=== PATIENT | male | born 1985 | race Hispanic/Latino ===

== ENCOUNTER 2021-01-25 15:14 | Emergency (ER) | payer SELFPAY ==
[2021-01-25] MEDS ORDERED: NA CHLORIDE 0.9% 2,000 ML ONE (15:25)
[2021-01-25] MEDS ORDERED: ONDANSETRON 4 MG/2 ML VIAL ONE (15:25)
[2021-01-25] MEDS ORDERED: FENTANYL CITR 100 MCG/2 ML ONE (15:25)
[2021-01-25 15:44] LABS: Absolute Lymphocytes (CBC) 2.6 K/uL (0.7-4.9); Basophils % 0.4 % (0-1.3); Hematocrit 42.6 % (39.6-49.0); Lymphocytes % 28.5 % (15.3-44.8); MPV 9.2 fL (7.6-11.3)
[2021-01-25 15:46] LABS: Protime INR 0.97
[2021-01-25 15:55] LABS: Potassium 3.6 mmol/L (3.5-5.1)
--- NOTE | 2021-01-25 16:02 | RAD REPORT ---
EXAM DESCRIPTION: CT - Head C Spine Cap W Kevin - 01/25/2021 3:47 pm CLINICAL HISTORY: PAIN COMPARISON: No comparisons TECHNIQUE: Axial [address] head images were obtained. Axial [address] cervical spine images were obtaine d with sagittal and coronal reconstruction images reviewed. During dynamic enhancement of 100mL non-i onic contrast, axial 5 mm images of the chest, abdomen and pelvis were obtained. Biphasic technique p erformed of the abdomen and pelvis. All CT scans are performed using dose optimization technique as appropriate and may include automated exposure control or mA/KV adjustment according to patient size. FINDINGS: No intracranial hemorrhage, mass or edema. No midline shift or abnormal fluid collection. Mastoid air cells are clear. No skull fracture is seen. Facial bones, orbits and sinuses are separ ately detailed. CT cervical spine imaging shows normal height. Normal alignment of the vertebrae. No disc space narro wing. No paraspinal mass or hematoma seen. Central canal detail is inherently limited. Concerns for t raumatic disc herniation or traumatic cord injury can be further addressed with MR imaging. CT chest shows no pneumothorax, pulmonary contusion or pleural fluid collection. No mediastinal hemat mara and the aorta and pulmonary arteries are unremarkable. No chest will mass or abnormal axillary fi nding. No displaced rib fracture or other significant bony finding. CT abdomen and pelvis show no injury to solid abdominal viscera. Gallbladder and biliary tree are unr emarkable. No bowel injury or significant finding. No free air, free fluid or abnormal stranding. No urinary bladder abnormality. No acute fracture in the abdomen or pelvis. Contusion or edema changes are seen lateral to the hip lorena int. No significant vascular finding. IMPRESSION: No hemorrhage, edema or acute intracranial finding. Facial bones, orbits and sinuses are separately detailed. No significant CT Cervical Spine finding. No significant CT Chest finding. No significant CT Abdomen and Pelvis finding.
--- NOTE | 2021-01-25 16:07 | RAD REPORT ---
EXAM DESCRIPTION: CT - Facial Bones W/ Mpr - 01/25/2021 3:47 pm CLINICAL HISTORY: Fall from ladder, blunt force trauma left side of the face COMPARISON: None. TECHNIQUE: Axial 2 millimeter thick images of the facial bones were obtained with sagittal and coron al reconstruction imaging. All CT scans are performed using dose optimization technique as appropriate and may include automated exposure control or mA/KV adjustment according to patient size. FINDINGS: Distal forearm fractures present separately detailed. In Mandible is intact. Condyles of the mandible are normally positioned. Mastoid air cells are clear. No skullbase fracture identified. Moderately large hematoma overlies left side frontal bone and left pe riorbital region. Frontal sinuses normally aerated with intact sinus smith. Comminuted nasal bone fractures present. There is fracture of the nasal septum at the junction with t he nasal bone. Multiple small fractures are present along the medial left orbital wall. There is intr aorbital, extraconal air within the orbit. Optic nerve and extraocular muscles appear intact. No glob e injury seen. Left orbital floor is intact. Zygomatic arch is intact. Trace fluid levels are present in each maxillary sinus with areas of retention cyst or polyp formatio n in each sinus. IMPRESSION: Comminuted nasal bone fracture with multiple small fracture fragments along the medial l eft orbital wall. Intraorbital, extraconal air is present on the left. Injury to the optic nerve or extraocular muscles not identified. Right deviation of the nasal septum with the anterior margin of the septum fractured.
--- NOTE | 2021-01-25 16:08 | RAD REPORT ---
EXAM DESCRIPTION: RAD - Femur Left - 01/25/2021 4:01 pm CLINICAL HISTORY: PAIN, fall from ladder, leg pain COMPARISON: None. FINDINGS: No fracture is identified. There is no dislocation or periosteal reaction noted. No acute or suspicious bony finding. No air or foreign body in the soft tissues. IMPRESSION: Negative left femur examination.
--- NOTE | 2021-01-25 16:10 | RAD REPORT ---
EXAM DESCRIPTION: RAD - Wrist Left 3 View - 01/25/2021 4:01 pm CLINICAL HISTORY: Pain;Deformity, fall from ladder COMPARISON: No comparisons FINDINGS: Ulna styloid is fractured with minimal displacement. Comminuted fracture of the distal radius is present. There is a main transverse fracture line through the distal radius with additional coronal fracture line along the dorsum. Fracture traverses the art icular surface. There is dorsal displacement of fracture fragments. Carpal bones maintain normal positioning to the distal radial fracture fragments. Carpal bone fractur e is not confirmed from these views. No foreign body or other soft tissue abnormality. IMPRESSION: Comminuted fracture of the distal radius with dorsal fracture fragment displacement.
[2021-01-25] MEDS ORDERED: MORPHINE 4 MG/ML SYR ONE ×2 (16:20→17:32)
[2021-01-25] MEDS ORDERED: TETANUS & DIPHTHERIA TOX,ADULT 0.5 ML VIAL ONE (16:27)
[2021-01-25] MEDS ORDERED: CEFAZOLIN SODIUM 1 GM/VIAL ONE (17:31)
--- NOTE | 2021-01-25 18:17 | ER ---
Nurse's Notes [facility] Name: Obinna Colin Age: 35 yrs Sex: Male : 1985 Arrival Date: 01/25/2021 Time: 15:19 Bed 3 Private MD: Diagnosis: Fall on and from scaffolding, initial encounter;Fracture of nasal bones, initial encounter for closed fracture;Colles' fracture of left radius, initial encounter for closed fracture;Unspecified injury of left eye and orbit, initial encounter;Concussion with loss of consciousness of unspecified duration Presentation: 01/25 15:10 Mechanism of Injury: Fall off 12 foot scaffold approximately 12 feet. Trauma event jl7 details: Injury occurred in the [facility], Injury occurred: Job site Injury occurred: January 25, 2021 Injury occurred at: 14:30. 15:10 Chief complaint: EMS states: pt was on a scaffolding working on a house. approximately tw2 12' high. he fell and landed on his face and LEFT wrist. + LOC. did have loss of bladder. when we arrived he had snoring respirations. initial bp was 148/90. in arrival to the EMS bay here it was 104/66. his HR is all over the place. c/o neck, back, and LEFT wrist pain with obvious deformity to the LEFT wrist. Coronavirus screen: At this time, the client does not indicate any symptoms associated with coronavirus-19. Ebola Screen: Patient denies travel to an Ebola-affected area in the 21 days before illness onset. Initial Sepsis Screen: Does the patient meet any 2 criteria? No. Patient's initial sepsis screen is negative. Does the patient have a suspected source of infection? No. Patient's initial sepsis screen is negative. Risk Assessment: Do you want to hurt yourself or someone else? Patient reports no desire to harm self or others. Onset of symptoms was January 25, 2021. 15:10 Method Of Arrival: EMS: [facility] tw2 15:10 Acuity: EDWIN 2 tw2 15:10 Care prior to arrival: Cervical collar in place. Placed on backboard. IV initiated. 18 tw2 GA, in the right forearm. 15:10 Care prior to arrival: Splint applied. jl7 Triage Assessment: 15:10 General: Appears in no apparent distress. Behavior is calm, cooperative, appropriate tw2 for age. Pain: Complains of pain in left wrist, face, left leg. Trauma Activation: Alert Physician: ED Physician; Name: ; Notified At: ; Arrived At: Physician: General Surgeon; Name: ; Notified At: ; Arrived At: Physician: Radiology; Name: ; Notified At: ; Arrived At: Physician: Respiratory; Name: ; Notified At: ; Arrived At: Physician: Lab; Name: ; Notified At: ; Arrived At: Historical: - Allergies: 15:40 No Known Allergies; tw2 - Home Meds: 15:40 None [Active]; tw2 - PMHx: 15:40 None; tw2 - PSHx: 15:40 None; tw2 - Immunization history:: Adult Immunizations. - Social history:: Smoking status: . - Immunization history: Last tetanus immunization: < 10 years ago. Screenin:42 Abuse screen: Denies threats or abuse. Nutritional screening: No deficits noted. tw2 Tuberculosis screening: No symptoms or risk factors identified. Fall Risk None identified. Primary Survey: 15:10 NO uncontrolled hemorrhage observed. A: Airway: patent. Breathing/Chest: Respiratory jl7 pattern: regular, Respiratory effort: spontaneous, unlabored, Chest inspection: symmetrical rise and fall of the chest. Circulation: Cardiac rhythm: Heart tones present. Pulses: palpable right radial artery, right posterior tibial artery, left radial artery and left posterior tibial artery. Skin color: pink, Skin temperature: warm. Disability Alert. Exposure/Environment: All clothing and personal items were removed. Forensic evidence collection is not deemed to be indicated at this time. Items placed in patient belonging bag. There is no evidence of uncontrolled external bleeding. Obvious injury(ies) are noted at this time: bony deformity noted to left wrist/forearm; abrasions and swelling noted to left eye A warming method has been applied: A warm blanket has been provided to the patient. 16:00 Reassessment Airway Airway Patent Breathing/Chest Respiratory pattern Regular jl7 Respiratory effort Spontaneous Unlabored Breath sounds Clear Chest inspection Symmetrical Circulation Heart rhythm Sinus rhythm Heart tones Present Pulses Palpable Color [place] Temperature Warm Disability Alert. Secondary Survey: 15:10 HEENT: Head No injury/deformity Face Other Swelling noted to left facial cheeck Eyes: jl7 Edema noted left eye. Ears: clear bilaterally. Nose: dried blood noted to bilateral nares. Throat: No injury or deformity noted. : pt was incontinent of urine [employer]. Musculoskeletal: Tenderness is absent. Denies pain in, thoracic area, lumbar area and sacrum. 15:10 Gastrointestinal: Abdomen is soft, Palpation No deficit noted Patient is continent of jl7 stool. Assessment: 15:33 Reassessment: Pt to radiology via stretcher. jl7 15:59 Reassessment: Pt returned from radiology via stretcher. jl7 16:08 Reassessment: ERP gave VO to remove c-collar, c-collar removed as ordered. jl7 16:13 Reassessment: Pt reports no change in pain level, repeat medication administered as jl7 ordered. 16:20 Reassessment: ERP at bedside to place pt's left fingers in finger traps to reduce left jl7 wrist fracture, gave VO for 4 mg Morphine IVP x 1. Vital Signs: 15:10 BP 143 / 94; Pulse 74; Resp 17; Temp 98.2(O); Pulse Ox 98% on R/A; Weight 95.25 kg (R); tw2 15:10 BP 143 / 94; Pulse 74; Resp 17 S; Temp 98.2(TE); Pulse Ox 98% on R/A; Weight 95.25 kg; jl7 15:10 Height 5 ft. 9 in. (175.26 cm); Pain 8/10; jl7 16:00 BP 148 / 91; Pulse 74; Resp 15; Pulse Ox 99% ; Pain 8/10; jl7 16:22 BP 134 / 92; Pulse 64; Resp 18; Pulse Ox 98% on R/A; tw2 17:00 BP 133 / 89; Pulse 75; Resp 15; Pulse Ox 97% ; jl7 17:45 BP 138 / 83; Pulse 64; Resp 19; Pulse Ox 100% ; jl7 18:30 BP 135 / 87; Pulse 69; Resp 17; Pulse Ox 100% ; jl7 15:10 Body Mass Index 31.01 (95.25 kg, 175.26 cm) jl7 [place] Coma Score: 15:10 Eye Response: spontaneous(4). Verbal Response: oriented(5). Motor Response: obeys jl7 commands(6). Total: 15. 16:00 Eye Response: spontaneous(4). Verbal Response: oriented(5). Motor Response: obeys jl7 commands(6). Total: 15. 16:22 Eye Response: spontaneous(4). Verbal Response: oriented(5). Motor Response: obeys tw2 commands(6). Total: 15. 17:00 Eye Response: spontaneous(4). Verbal Response: oriented(5). Motor Response: obeys jl7 commands(6). Total: 15. 17:45 Eye Response: spontaneous(4). Verbal Response: oriented(5). Motor Response: obeys jl7 commands(6). Total: 15. 18:30 Eye Response: spontaneous(4). Verbal Response: oriented(5). Motor Response: obeys jl7 commands(6). Total: 15. Trauma Score (Adult): 15:10 Eye Response: spontaneous(1); Verbal Response: oriented(1); Motor Response: obeys jl7 commands(2); Systolic BP: > 89 mm Hg(4); Respiratory Rate: 10 to 29 per min(4); Veronica Score: 15; Trauma Score: 12 16:22 Eye Response: spontaneous(1); Verbal Response: oriented(1); Motor Response: obeys tw2 commands(2); Systolic BP: > 89 mm Hg(4); Respiratory Rate: 10 to 29 per min(4); Veronica Score: 15; Trauma Score: 12 ED Course: 15:10 Placed in gown. Side rails up X2. compliance monitor on. Pulse ox on. NIBP on. Warm tw2 blanket given. 15:10 Arm band placed on right wrist. Patient placed in an exam room, on a stretcher, on jl7 equipment monitor phototypesetting, on pulse oximetry. 15:10 Patient maintains SpO2 saturation greater than 95% on room air. Thermoregulation: warm jl7 blanket given to patient. 15:19 Patient arrived in ED. tw2 15:19 Suraj Jimenez PA is PHCP. cp 15:19 Raul Mtz MD is Attending Physician. cp 15:19 Jack Sanabria RN is Primary Nurse. jl7 15:28 Initial lab(s) drawn, by me, sent to lab. EKG done, by ED staff, reviewed by Suraj ESPINOZA T\T\S collected, blood band applied to patient. Maintain EMS IV. Dressing intact. Good blood return noted. Site clean \T\ dry. Gauge \T\ site: 18 R FA. 15:39 Triage completed. tw2 15:47 CT Traumagram (Head C Spine CAP W Con) In Process Unspecified. EDMS 15:47 CT Facial Bones W/O Con In Process Unspecified. EDMS 16:01 XRAY Wrist LEFT 3 view In Process Unspecified. EDMS 16:01 XRAY Femur LEFT In Process Unspecified. EDMS 17:35 Assist provider with fracture care of left wrist Fracture is closed. Obvious deformity jl7 is noted. Circulation, motor and sensation is intact. Set up for procedure. Performed by Suraj ESPINOZA Reduced with traction. Immobilized with orthoglass. Post immobilization, circulation, motor and sensation remain intact. Patient tolerated well. 17:40 Orthoglass splint: Sugar tong splint applied on left arm. Sling applied to left arm. jl7 18:13 David Mills MD is Referral Physician. cp 18:13 Brandy Bhatia MD is Referral Physician. cp 18:14 Cisco Matthew MD is Referral Physician. cp 18:43 IV discontinued, intact, bleeding controlled, No redness/swelling at site. Pressure jl7 dressing applied. Administered Medications: 15:28 Drug: Zofran (Ondansetron) 4 mg Route: IVP; Site: right forearm; tw2 17:29 Follow up: Response: No adverse reaction tw2 15:29 Drug: fentaNYL (PF) 25 mcg {Note: RASS 0.} Route: IVP; Site: right forearm; tw2 15:59 Follow up: Response: No adverse reaction; Pain is unchanged, physician notified jl7 16:08 Drug: fentaNYL (PF) 25 mcg Route: IVP; Site: right forearm; tw2 16:30 Follow up: Response: No adverse reaction; Pain is decreased jl7 16:14 Drug: NS 0.9% 1000 ml Route: IV; Rate: 1 bolus; Site: right forearm; tw2 17:10 Follow up: Response: No adverse reaction; IV Status: Completed infusion; IV Intake: jl7 1000ml 16:15 Drug: NS 0.9% 1000 ml Route: IV; Rate: 1 bolus; Site: right forearm; tw2 18:00 Follow up: Response: No adverse reaction; IV Status: Completed infusion; IV Intake: jl7 1000ml 16:22 Drug: morphine 4 mg Route: IVP; Site: right forearm; jl7 16:35 Follow up: Response: No adverse reaction; Pain is decreased jl7 16:42 Drug: Tetanus-Diphtheria Toxoid Adult 0.5 ml {[employer]: [email or web address]. Exp: jl7 07/06/2022. Lot #: [id number]. } Route: IM; Site: right deltoid; 17:30 Follow up: Response: No adverse reaction tw2 17:30 Drug: morphine 4 mg Route: IVP; Site: right forearm; jl7 18:00 Follow up: Response: No adverse reaction; Pain is decreased jl7 17:35 Drug: Ancef (cefazolin) 1 grams Route: IVPB; Site: right forearm; ll3 17:40 Follow up: Response: No adverse reaction; IV Status: Completed infusion; IV Intake: [id number] 18:42 Drug: [place] (HYDROcodone-acetaminophen) 10 mg-325 mg 1 tabs Route: PO; jl7 18:42 Follow up: Response: Medication administered at discharge. jl7 Intake: 17:10 IV: 1000ml; Total: 1000ml. jl7 17:40 IV: 10ml; Total: 1010ml. jl7 18:00 IV: 1000ml; Total: 2010ml. jl7 18:40 IV: 2000ml (IV Fluid); Total: 4010ml. jl7 Output: 18:40 Urine: 1000ml (Voided); Total: 1000ml. jl7 Outcome: 18:17 Discharge ordered by MD. cp 18:43 Discharged to home via wheelchair, with family. jl7 18:43 Condition: stable 18:43 Discharge instructions given to patient, family, Instructed on discharge instructions, follow up and referral plans. medication usage, safety practices, Demonstrated understanding of instructions, follow-up care, medications, Prescriptions given X 3. 18:44 Patient's length of stay was not longer than 2 hours. jl7 18:44 Patient left the ED. jl7 Signatures: Dispatcher [employer] EDMS Suraj Jimenez PA PA cp Wise, Tara, RN RN tw2 Jack Sanabria RN RN jl7 Doretha Larsen RN RN ll3 Corrections: (The following items were deleted from the chart) 15:32 15:10 Chief complaint: tw2 jl7
--- NOTE | 2021-01-25 18:18 | EDPHYS ---
Physician Documentation [facility] Name: Obinna Colin Age: 35 yrs Sex: Male : 1985 Arrival Date: 01/25/2021 Time: 15:19 Bed 3 Private MD: ED Physician Raul Mtz HPI: 01/25 15:25 This 35 yrs old Male presents to ER via EMS with complaints of Fall Injury. cp 15:25 Details of fall: The patient fell from a height, off scaffolding, approximately 12 cp feet, and struck a concrete surface. Onset: The symptoms/episode began/occurred just prior to arrival. Associated injuries: The patient sustained injury to the head, abrasion, contusion, swelling, tenderness, LOC, left wrist, decreased range of motion, deformity, painful injury. Historical: - Allergies: 15:40 No Known Allergies; tw2 - Home Meds: 15:40 None [Active]; tw2 - PMHx: 15:40 None; tw2 - PSHx: 15:40 None; tw2 - Immunization history:: Adult Immunizations. - Social history:: Smoking status: . - Immunization history: Last tetanus immunization: < 10 years ago. ROS: 15:30 Constitutional: Negative for body aches, chills, fever, poor PO intake. cp 15:30 ENT: Negative for injury, pain, and discharge. cp 15:30 Eyes: Positive for swelling, of the left periorbital. 15:30 Neck: Negative for stiffness. 15:30 Cardiovascular: Negative for chest pain. 15:30 Respiratory: Negative for cough, shortness of breath. 15:30 Abdomen/GI: Negative for abdominal pain, nausea, vomiting, and diarrhea. 15:30 : Positive for bladder incontinence 15:30 MS/extremity: Positive for injury or acute deformity, decreased range of motion, of the left wrist, Negative for paresthesias. 15:30 Neuro: Positive for loss of consciousness, Negative for altered mental status. 15:30 All other systems are negative. Exam: 15:33 ECG was reviewed by the Attending Physician. cp 15:35 Constitutional: The patient appears in no acute distress, alert, awake, cp non-diaphoretic, non-toxic, well developed, well nourished, uncomfortable. 15:35 Head/face: Noted is swelling, that is moderate, of the left periorbital area. cp 15:35 Eyes: Pupils: equal, round, and reactive to light and accomodation, Extraocular movements: intact throughout, Conjunctiva: normal, no exudate, no injection, Sclera: no appreciated abnormality, Lids and lashes: appear normal, bilaterally. 15:35 ENT: External ear(s): are unremarkable, Ear canal(s): are normal, clear, TM's: dullness, bilaterally, Nose: External nose: swelling is noted, Nasal septum: deviates to the right, no septal hematoma appreciated, bleeding, is not appreciated, Mouth: Lips: lacerated, lower lip, superficial, Posterior pharynx: Airway: no evidence of obstruction, patent, Dental exam: no acute changes. 15:35 Neck: C-spine: C-collar placed PROTOZOOLOGIST, Back board PROTOZOOLOGIST 15:35 Chest/axilla: Inspection: normal, Palpation: is normal, no crepitus, no tenderness. 15:35 Cardiovascular: Rate: normal, Rhythm: regular, Heart sounds: murmur, not appreciated, Edema: is not appreciated. 15:35 Respiratory: the patient does not display signs of respiratory distress, Respirations: normal, no use of accessory muscles, no retractions, labored breathing, is not present, Breath sounds: are clear throughout, no decreased breath sounds, no stridor, no wheezing. 15:35 Abdomen/GI: Inspection: abdomen appears normal, Bowel sounds: active, all quadrants, Palpation: abdomen is soft and non-tender, in all quadrants. 15:35 Back: pain, that is very mild, ROM is normal. 15:35 Musculoskeletal/extremity: Extremities: grossly normal except: noted in the left wrist: decreased ROM, deformity, pain, swelling, tenderness, noted in the left upper leg: pain, tenderness, no evidence of decreased ROM, deformity, ROM: limited passive range of motion due to pain, in the left wrist, Perfusion: the extremity is normally perfused throughout, the left hand Sensation intact. 15:35 Neuro: Orientation: to person, place \T\ time. Mentation: is normal, Motor: moves all fours, strength is normal, Sensation: no obvious gross deficits. Vital Signs: 15:10 BP 143 / 94; Pulse 74; Resp 17; Temp 98.2(O); Pulse Ox 98% on R/A; Weight 95.25 kg (R); tw2 15:10 BP 143 / 94; Pulse 74; Resp 17 S; Temp 98.2(TE); Pulse Ox 98% on R/A; Weight 95.25 kg; jl7 15:10 Height 5 ft. 9 in. (175.26 cm); Pain 8/10; jl7 16:00 BP 148 / 91; Pulse 74; Resp 15; Pulse Ox 99% ; Pain 8/10; jl7 16:22 BP 134 / 92; Pulse 64; Resp 18; Pulse Ox 98% on R/A; tw2 17:00 BP 133 / 89; Pulse 75; Resp 15; Pulse Ox 97% ; jl7 17:45 BP 138 / 83; Pulse 64; Resp 19; Pulse Ox 100% ; jl7 18:30 BP 135 / 87; Pulse 69; Resp 17; Pulse Ox 100% ; jl7 15:10 Body Mass Index 31.01 (95.25 kg, 175.26 cm) jl7 Veronica Coma Score: 15:10 Eye Response: spontaneous(4). Verbal Response: oriented(5). Motor Response: obeys jl7 commands(6). Total: 15. 16:00 Eye Response: spontaneous(4). Verbal Response: oriented(5). Motor Response: obeys jl7 commands(6). Total: 15. 16:22 Eye Response: spontaneous(4). Verbal Response: oriented(5). Motor Response: obeys tw2 commands(6). Total: 15. 17:00 Eye Response: spontaneous(4). Verbal Response: oriented(5). Motor Response: obeys jl7 commands(6). Total: 15. 17:45 Eye Response: spontaneous(4). Verbal Response: oriented(5). Motor Response: obeys jl7 commands(6). Total: 15. 18:30 Eye Response: spontaneous(4). Verbal Response: oriented(5). Motor Response: obeys jl7 commands(6). Total: 15. Trauma Score (Adult): 15:10 Eye Response: spontaneous(1); Verbal Response: oriented(1); Motor Response: obeys jl7 commands(2); Systolic BP: > 89 mm Hg(4); Respiratory Rate: 10 to 29 per min(4); Elmer Score: 15; Trauma Score: 12 16:22 Eye Response: spontaneous(1); Verbal Response: oriented(1); Motor Response: obeys tw2 commands(2); Systolic BP: > 89 mm Hg(4); Respiratory Rate: 10 to 29 per min(4); Veronica Score: 15; Trauma Score: 12 Procedures: 18:25 Splinting: Splint applied to left wrist using Orthoglass splint, sling, sugar tong cp type. applied by tech. Examined by me, post splint application: neurovascular intact, Patient tolerated well. MDM: 15:31 Patient medically screened. cp 16:00 Differential diagnosis: closed head injury, contusion, fracture, laceration, multiple cp trauma. 18:15 Data reviewed: vital signs, nurses notes, lab test result(s), EKG, radiologic studies, cp CT scan, plain films, I have discussed the patient's presentation/case with the attending Emergency Department Physician;. 18:15 Test interpretation: by ED physician or midlevel provider: ECG, plain radiologic cp studies. Counseling: I had a detailed discussion with the patient and/or guardian regarding: the historical points, exam findings, and any diagnostic results supporting the discharge/admit diagnosis, lab results, radiology results, the need for outpatient follow up, for definitive care, an ENT specialist, an opthalmologist, a orthopedic surgeon, to return to the emergency department if symptoms worsen or persist or if there are any questions or concerns that arise at home. Response to treatment: the patient's symptoms have markedly improved after treatment, VSS. Pain markedly improved. Discussed results of labs and radiology studies and need for f/u for sustained injuries. Will discharge to home for continued monitoring. 01/25 15:22 Order name: Basic Metabolic Panel; Complete Time: 16:09 cp 01/25 16:09 Interpretation: Normal except: GLUC 126; GFR 84. cp 01/25 15:22 Order name: CBC with Diff; Complete Time: 16:09 cp 01/25 15:22 Order name: Type And Screen; Complete Time: 16:54 cp 01/25 15:22 Order name: CT Traumagram (Head C Spine CAP W Con); Complete Time: 16:09 cp 01/25 15:22 Order name: PT-INR; Complete Time: 16:09 cp 01/25 15:22 Order name: Ptt, Activated; Complete Time: 16:09 cp 12/03 15:22 Order name: CT Facial Bones W/O Con; Complete Time: 16:09 cp 01/25 15:22 Order name: XRAY Wrist LEFT 3 view; Complete Time: 16:54 cp 01/25 15:22 Order name: XRAY Femur LEFT; Complete Time: 16:09 cp 01/25 15:22 Order name: Labs collected and sent; Complete Time: 15:33 cp 01/25 15:22 Order name: EKG; Complete Time: 15:22 cp 01/25 15:22 Order name: EKG - Nurse/Tech; Complete Time: 15:33 cp 12 15:22 Order name: IV; Complete Time: 15:53 cp 01/25 17:50 Order name: Sling; Complete Time: 18:01 cp EC:33 Rate is 75 beats/min. Rhythm is regular. HI interval is normal. QRS interval is normal. cp QT interval is normal. T waves are Inverted in leads III, aVR. Interpreted by me. Reviewed by me. Administered Medications: 15:28 Drug: Zofran (Ondansetron) 4 mg Route: IVP; Site: right forearm; tw2 17:29 Follow up: Response: No adverse reaction tw2 15:29 Drug: fentaNYL (PF) 25 mcg {Note: RASS 0.} Route: IVP; Site: right forearm; tw2 15:59 Follow up: Response: No adverse reaction; Pain is unchanged, physician notified jl7 16:08 Drug: fentaNYL (PF) 25 mcg Route: IVP; Site: right forearm; tw2 16:30 Follow up: Response: No adverse reaction; Pain is decreased jl7 16:14 Drug: NS 0.9% 1000 ml Route: IV; Rate: 1 bolus; Site: right forearm; tw2 17:10 Follow up: Response: No adverse reaction; IV Status: Completed infusion; IV Intake: jl7 1000ml 16:15 Drug: NS 0.9% 1000 ml Route: IV; Rate: 1 bolus; Site: right forearm; tw2 18:00 Follow up: Response: No adverse reaction; IV Status: Completed infusion; IV Intake: jl7 1000ml 16:22 Drug: morphine 4 mg Route: IVP; Site: right forearm; jl7 16:35 Follow up: Response: No adverse reaction; Pain is decreased jl7 16:42 Drug: Tetanus-Diphtheria Toxoid Adult 0.5 ml {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 Exp: jl7 07/06/2022. Lot #: [id number]. } Route: IM; Site: right deltoid; 17:30 Follow up: Response: No adverse reaction tw2 17:30 Drug: morphine 4 mg Route: IVP; Site: right forearm; jl7 18:00 Follow up: Response: No adverse reaction; Pain is decreased jl7 17:35 Drug: Ancef (cefazolin) 1 grams Route: IVPB; Site: right forearm; ll3 17:40 Follow up: Response: No adverse reaction; IV Status: Completed infusion; IV Intake: [id number] 18:42 Drug: [place] (HYDROcodone-acetaminophen) 10 mg-325 mg 1 tabs Route: PO; jl7 18:42 Follow up: Response: Medication administered at discharge. Disposition: 18:30 Chart complete. cp 01/26 18:02 Co-signature as Attending Physician, Raul Mtz MD I agree with the assessment and rn plan of care. Attestation: The patient's history, exam findings, diagnostics, and a summary of any interventions or procedures was reviewed in detail with Suraj ESPINOZA. Disposition Summary: 01/25/21 18:17 Discharge Ordered Location: Home cp Problem: new cp Symptoms: have improved cp Condition: Stable cp Diagnosis - Fall on and from scaffolding, initial encounter cp - Fracture of nasal bones, initial encounter for closed fracture cp - Colles' fracture of left radius, initial encounter for closed fracture cp - Unspecified injury of left eye and orbit, initial encounter cp - Concussion with loss of consciousness of unspecified duration cp Followup: cp - With: David Milsl MD - When: 2 - 3 days - Reason: left wrist fracture Followup: cp - With: Brandy Bhatia MD - When: 2 - 3 days - Reason: nasal bones fracture Followup: cp - With: Cisco Matthew MD - When: 2 - 3 days - Reason: left orbital fracture Discharge Instructions: - Discharge Summary Sheet cp - Colles Fracture cp - Concussion, Adult cp - Nasal Fracture cp Forms: - Medication Reconciliation Form cp - Thank You Letter cp - Antibiotic Education cp - Prescription Opioid Use cp Prescriptions: - Augmentin 875-125 mg Oral Tablet - take 1 tablet by ORAL route every 12 hours for 10 days; 20 tablet; Refills: 0, cp Product Selection Permitted - Ibuprofen 800 mg Oral Tablet - take 1 tablet by ORAL route every 8 hours As needed take with food; 30 tablet; cp Refills: 0, Product Selection Permitted - Tylenol-Codeine #3 300 mg-30 mg Oral - take 2 tablet by ORAL route every 6-8 hours; 20 tablet; Refills: 0, Product cp Selection Permitted Signatures: Dispatcher [employer] EDMS Raul Mtz MD MD rn Page, Corey, PA PA Pavithra Arguelles RN RN tw2 Jack Sanabria RN RN jl7 Doretha Larsen RN RN ll3
[2021-01-25] MEDS ORDERED: HYDROCODONE/APAP 10/325 TAB ONE (18:38)
[2021-01-25 18:53] VITALS: BP 138/83; O2SAT 100
--- NOTE | 2021-01-26 12:37 | EKG ---
Test Date: 2021-01-25 Test Time: 15:25:00 Public Relations Intern: MARIA FERNANDA MEASUREMENT RESULTS: Intervals: Rate: 75 MI: 132 QRSD: 94 QT: 360 QTc: 402 [place]: P: 33 MI: 132 QRS: 87 T: 21 INTERPRETIVE STATEMENTS: Normal sinus rhythm Normal ECG No previous ECG available for comparison Electronically Signed On 01-26-21 12:35:37 [employer] by Kenneth Mccarthy
== END 2021-01-25 18:44 | disposition home or self-care (01) ==
LOC: ER 15:14
PROC: 2W3DX1Z Immobilization of Left Lower Arm using Splint (ICD-10-PCS; principal; 2021-01-25)
DX: S02.2XXA Fracture of nasal bones, initial encounter for closed fracture (principal); S52.532A Colles' fracture of left radius, initial encounter for closed fracture; S05.92XA Unspecified injury of left eye and orbit, initial encounter; S06.0X9A Concussion with loss of consciousness of unspecified duration, initial encounter; W12.XXXA Fall on and from scaffolding, initial encounter; Y92.69 Other specified industrial and construction area as the place of occurrence of the external cause
CPT/HCPCS: 36415; 70450; 70486; 71260; 72125; 74177; 76377; 80048; 82565; 85025; 85610; 85730; 86850; 86900; 86901; 90471; 90714; 93005; 96361; 96374; 96375; 99285; J0690; J2405; J3010; J7030; Q9967